=== PATIENT | female | born 1975 | race American Indian/Alaskan Native ===

== ENCOUNTER 2018-04-05 09:02 | Emergency (ER) | payer BC ==
[2018-04-05 09:18] VITALS: BP 110/63
--- NOTE | 2018-04-05 10:46 | Emergency Department Report ---
[facility] Duration: 2 Days Side: Right Severity: moderate Symptoms: Yes Eye Itching, Yes Eye Redness, Yes Mucous Drainage, No Eye Pain, No Purulent Drainage, No Blurred Vision, No Preceding URI, No H/O Allergic Rhinitis, No Contact Lens Use, No Trauma, No Fever, No Headache Other History: 42-year-old female past medical history none presents with complaint of right eye itchiness yellowish discharge and eyelid crusting for 2 days. 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 States that many patients have conjunctivitis currently in her workplace. Denies any blurry vision. Denies any eye pain or floaters. Denies any direct trauma or substance splashing into her right eye. Does not wear contact lenses. <UYEN COFFEY - Last Filed: 04/05/18 10:40> <VAISHNAVI BULLARD - Last Filed: 04/05/18 16:15> Chief Complaint: Eye Problems Stated Complaint: REDNESS/PAIN/RIGHT EYE Time Seen by Provider: 04/05/18 10:27 ED Review of Systems ROS: Stated complaint: REDNESS/PAIN/RIGHT EYE Other details as noted in HPI Constitutional: denies: chills, fever Eyes: eye discharge. denies: eye pain, vision change ENT: denies: ear pain, throat pain Respiratory: denies: cough, shortness of breath, wheezing Cardiovascular: denies: chest pain, palpitations Endocrine: no symptoms reported Gastrointestinal: denies: abdominal pain, nausea, diarrhea Genitourinary: denies: urgency, dysuria, discharge Musculoskeletal: denies: back pain, joint swelling, arthralgia Skin: denies: rash, lesions Neurological: denies: headache, weakness, paresthesias Psychiatric: denies: anxiety, depression Hematological/Lymphatic: denies: easy bleeding, easy bruising <UYEN COFFEY - Last Filed: 04/05/18 10:40> ROS: Stated complaint: REDNESS/PAIN/RIGHT EYE Other details as noted in HPI <VAISHNAVI BULLARD - Last Filed: 04/05/18 16:15> ED Past Medical Hx - Past Medical History Previous Medical History?: No - Surgical History Past Surgical History?: Yes Hx Appendectomy: Yes - Social History Smoking Status: Current Every Day Smoker Substance Use Type: None <UYEN COFFEY - Last Filed: 04/05/18 10:40> <VAISHNAVI BULLARD - Last Filed: 04/05/18 16:15> - Medications Home Medications: Home Medications Medication Instructions Recorded Confirmed Last Taken Type Ibuprofen [Motrin] 600 mg PO Q8H PRN #20 tablet 04/05/18 Unknown Rx Tobramycin 0.3% [Tobrex] 1 drop OD Q4H #1 bottle 04/05/18 Unknown Rx [facility] Exam - Exam General: Vital signs noted. No distress. Alert and acting appropriately. Eye Exam: Right Injection, Right Chemosis, Right Purulent Discharge, Both EOMI HEENT: No Nasal Congestion, No Pharyngeal Erythema Remainder of HEENT: Normal Lungs: Yes Clear Lung Sounds, Yes Good Air Exchange, No Wheezes, No Stridor, No Cough, No Nasal Flaring, No Retractions, No Use of Accessory Muscles <UYEN COFFEY - Last Filed: 04/05/18 10:40> - Exam General: Vital signs noted. No distress. Alert and acting appropriately. <VAISHNAVI BULLARD - Last Filed: 04/05/18 16:15> ED Course Vital Signs 04/05/18 09:10 Temperature 98.3 F Pulse Rate 85 Respiratory 16 Rate Blood Pressure 110/63 O2 Sat by Pulse 100 Oximetry <UYEN COFFEY - Last Filed: 04/05/18 10:40> Vital Signs 04/05/18 09:10 Temperature 98.3 F Pulse Rate 85 Respiratory 16 Rate Blood Pressure 110/63 O2 Sat by Pulse 100 Oximetry <VAISHNAVI BULLARD - Last Filed: 04/05/18 16:15> ED Medical Decision Making - Medical Decision Making A/P: Conjunctivitis right eye 1-tobramycin eyedrops 2-Motrin when necessary 3-follow-up with ophthalmology 4-vision 20/20 overall, 20/25 right eye, 20/20 left <UYEN COFFEY - Last Filed: 04/05/18 10:40> - Medical Decision Making I did not see this patient. I was available for consultation the entire time the patient was in the department. I have reviewed the LOCOMOTIVE DRIVER/PAs note and agree with the plan. <VAISHNAVI BULLARD - Last Filed: 04/05/18 16:15> Critical care attestation.: If time is entered above; I have spent that time in minutes in the direct care of this critically ill patient, excluding procedure time. <UYEN COFFEY - Last Filed: 04/05/18 10:40> Critical care attestation.: If time is entered above; I have spent that time in minutes in the direct care of this critically ill patient, excluding procedure time. <VAISHNAVI BULLARD - Last Filed: 04/05/18 16:15> ED Disposition Is pt being admited?: No Does the pt Need Aspirin: No Time of Disposition: 10:51 <UYEN COFFEY - Last Filed: 04/05/18 10:40> <VAISHNAVI BULLARD - Last Filed: 04/05/18 16:15> Disposition: DC-01 TO HOME OR SELFCARE Condition: Stable Instructions: Conjunctivitis (ED) Prescriptions: Ibuprofen [Motrin] 600 mg PO Q8H PRN #20 tablet PRN Reason: Pain Tobramycin 0.3% [Tobrex] 1 drop OD Q4H #1 bottle Referrals: JOSIANE OCHOA MD [Staff Physician] - 3-5 Days DAVY BENAVIDEZ MD [Staff Physician] - 3-5 Days Forms: Accompanied Note, Work/School Release Form(ED)
== END 2018-04-05 11:06 | disposition home or self-care (01) ==
LOC: ED 09:02
DX: H10.89 Other conjunctivitis (principal); F17.200 Nicotine dependence, unspecified, uncomplicated; Z90.49 Acquired absence of other specified parts of digestive tract
CPT/HCPCS: 99282

== ENCOUNTER 2019-01-23 06:53 | Observation (INO) | payer BC ==
[2019-01-23] MEDS ORDERED: ASPIRIN PO ONE (07:01)
[2019-01-23 07:20] LABS: Basophils # (Auto) 0.1 K/mm3 (0.0-0.1); Basophils % (Auto) 1.9 % (0.0-1.8); Eosinophils # (Auto) 0.1 K/mm3 (0.0-0.4); Eosinophils % (Auto) 1.7 % (0.0-4.3); Lymphocytes # (Auto) 1.7 K/mm3 (1.2-5.4); Lymphocytes % (Auto) 22.4 % (13.4-35.0); Mean Corpuscular HGB Conc 28 % (30-34); Monocytes # (Auto) 0.7 K/mm3 (0.0-0.8); Monocytes % (Auto) 9.5 % (0.0-7.3); Platelet Count 391 K/mm3 (140-440); Red Blood Count 3.72 M/mm3 (3.65-5.03)
[2019-01-23 07:24] LABS: Hematocrit 23.9 % (30.3-42.9); Hemoglobin 6.8 gm/dl (10.1-14.3); Mean Corpuscular Volume 64 fl (79-97)
[2019-01-23 07:51] LABS: BUN/Creatinine Ratio 22; Blood Urea Nitrogen 11 mg/dL (7-17); Calcium 8.6 mg/dL (8.4-10.2); Hemolysis Index 3
--- NOTE | 2019-01-23 07:53 | XRay Report ---
ROUTINE CHEST, TWO VIEWS: HISTORY: chest pain. The trachea, heart, mediastinal contour, lung brady and bony thorax are unremarkable. IMPRESSION: Unremarkable chest x-ray.
[2019-01-23] MEDS ORDERED: NACL 0.9% 500 ML 500 ML IV ONE (08:29)
--- NOTE | 2019-01-23 08:34 | Emergency Department Report ---
ED Chest Pain HPI - General Chief Complaint: Chest Pain Stated Complaint: CHEST PAIN/SHORTNESS OF BREATH Time Seen by Provider: 01/23/19 08:17 Source: patient Mode of arrival: Ambulatory Limitations: No Limitations - History of Present Illness Initial Comments: 43-year-old female presents to the emergency department with complaint of a sharp left-sided chest pain that radiated to her neck and her left arm that occurred when she was bending over to pick some up earlier this morning. The chest pain has improved, if not resolved, but she still has a "strange feeling" going down her left arm. Also associated with some nausea without vomiting and some shortness of breath. The patient denies any past medical history but upon further questioning does admit to some history of iron deficiency anemia for which she sometimes will be on iron supplements. She is a tobacco smoker. She has a family history of a grandmother who from a heart attack at the age of 50. No recent travel or sick contacts at home. Severity scale (0 -10): 3 - Related Data Previous Rx's Medication Instructions Recorded Last Taken Type Ibuprofen [Motrin] 600 mg PO Q8H PRN #20 tablet 04/05/18 Unknown Rx Tobramycin 0.3% [Tobrex] 1 drop OD Q4H #1 bottle 04/05/18 Unknown Rx Allergies Allergy/AdvReac Type Severity Reaction Status Date / Time iodine Allergy Anaphylaxis Verified 04/05/18 09:14 Heart Score - HEART Score History: Moderately suspicious EKG: Normal Age: < 45 Risk factors: 1-2 risk factors Troponin: < normal limit HEART Score: 2 ED Review of Systems ROS: Stated complaint: CHEST PAIN/SHORTNESS OF BREATH Other details as noted in HPI Comment: All other systems reviewed and negative Constitutional: denies: chills, fever Eyes: denies: eye pain, vision change ENT: denies: ear pain, throat pain Respiratory: shortness of breath. denies: cough Cardiovascular: chest pain. denies: palpitations Gastrointestinal: nausea. denies: abdominal pain, vomiting Genitourinary: denies: dysuria, discharge Musculoskeletal: denies: back pain, arthralgia Skin: denies: rash, lesions Neurological: denies: headache, weakness ED Past Medical Hx - Past Medical History Previous Medical History?: No - Surgical History Past Surgical History?: Yes Hx Appendectomy: Yes - Social History Smoking Status: Current Every Day Smoker Substance Use Type: None - Medications Home Medications: Home Medications Medication Instructions Recorded Confirmed Last Taken Type Ibuprofen [Motrin] 600 mg PO Q8H PRN #20 tablet 04/05/18 Unknown Rx Tobramycin 0.3% [Tobrex] 1 drop OD Q4H #1 bottle 04/05/18 Unknown Rx ED Physical Exam - General Limitations: No Limitations - Other Other exam information: GENERAL: The patient is well-developed well-nourished. HEENT: Normocephalic. Atraumatic. Patient has moist mucous membranes. EYES: Extraocular motions are intact. Pupils are equal and reactive to light bilaterally. Pale conjunctiva. NECK: Supple. Trachea is midline. CHEST/LUNGS: Clear to auscultation. There is no respiratory distress noted. HEART/CARDIOVASCULAR: Regular. There is no tachycardia. There is no obvious murmur. ABDOMEN: Abdomen is soft, nontender. Patient has normal bowel sounds. There is no abdominal distention. SKIN: Skin is warm and dry. NEURO: The patient is awake, alert, and oriented. The patient is cooperative. The patient has no focal neurologic deficits. The patient has normal speech. MUSCULOSKELETAL: There is no tenderness or deformity. There is no evidence of acute injury. ED Course Vital Signs 01/23/19 01/23/19 08:58 09:31 Temperature 98.3 F Pulse Rate 77 Respiratory 16 18 Rate Blood Pressure 124/60 [Right] O2 Sat by Pulse 100 Oximetry PHIL score - Phil Score Age > 65: (0) No Aspirin use within the Past 7 Days: (0) No 3 or more CAD Risk Factors: (0) No 2 or more Angina events in past 24 hrs: (1) Yes Known CAD with more than 50% Stenosis: (0) No Elevated Cardiac Markers: (0) No ST Deviation Greater than 0.5mm: (0) No PHIL Score: 1 ED Medical Decision Making - Lab Data Result diagrams: 01/23/19 07:10 01/23/19 07:10 - EKG Data -: EKG Interpreted by Me EKG shows normal: sinus rhythm, axis, intervals, QRS complexes, ST-T waves Rate: normal - EKG Data When compared to previous EKG there are: previous EKG unavailable Interpretation: normal EKG - Radiology Data Radiology results: image reviewed interpreted by me: Chest x-ray does not show any pneumothorax, pleural effusion, pneumonia or obvious focal consolidation. - Medical Decision Making Patient presents with some sharp left-sided chest pains going to the neck and arm, some intermittent shortness of breath. She was found to have a hemoglobin of 6.8 and despite her history of iron deficiency anemia, she appears to have some symptomatic anemia. Patient has a risk factors of tobacco use and family history for cardiac disease. EKG does not show any signs of ST elevation MN. First troponin negative. Chest x-ray is unremarkable. She will be transfused 1 unit to start and will be admitted to the hospital for further evaluation of her symptomatic anemia and chest pains. She has been accepted for admission by the hospitalist. - Differential Diagnosis symptomatic anemia, MN, costochondritis, pneumonia Critical Care Time: Yes Critical care time in (mins) excluding proc time.: 35 Critical care attestation.: If time is entered above; I have spent that time in minutes in the direct care of this critically ill patient, excluding procedure time. Critical care time spent on this patient and doing her initial evaluation, multiple re-evaluations, evaluation of labs and imaging, ordering of blood for transfusion, discussion with the patient and hospitalist service. Critical Care Time: 35 minutes ED Disposition Clinical Impression: Acute chest pain, Microcytic anemia, Symptomatic anemia Disposition: OP ADMIT IP TO THIS HOSP Is pt being admited?: Yes Condition: Fair Time of Disposition: 08:34
[2019-01-23] MEDS ORDERED: NACL 0.9% 500 ML 500 ML ONE ×2 (10:52→11:43)
[2019-01-23] MEDS ORDERED: PROVENTIL IH PRN (11:26)
[2019-01-23] MEDS ORDERED: ALUM-MAG HYDROX-SIMETH 200-200-20MG/5ML PO PRN (11:26)
[2019-01-23] MEDS ORDERED: PERCOCET 5/325 PO PRN (11:26)
[2019-01-23] MEDS ORDERED: ZOFRAN IV PRN (11:26)
[2019-01-23] MEDS ORDERED: SODIUM CHLORIDE FLUSH SYRINGE 10 ML IV PRN (11:26)
[2019-01-23] MEDS ORDERED: TYLENOL PO PRN (11:26)
--- NOTE | 2019-01-23 11:32 | History and Physical Report ---
History of Present Illness Date of examination: 01/23/19 Date of admission: 01/23/19 08:34 Chief complaint: Chest pain History of present illness: 43-year-old -[place] female whose past medical history significant for anemia, menometrorrhagia presented to the emergency department with complaints of left chest pain that started earlier this morning. Pain was sharp, 3-4 out of 10 in intensity, with radiation to the left arm and jaw associated shortness of breath. She denied any relieving or aggravating factors identified. Patient denied fever, chills, palpitation, leg swelling. Patient was told she had anemia but never followed with a doctor. Hemoglobin was checked in the ED and was 6.8, patient admitted to the floor for further management of chest pain and anemia. One unit of blood was ordered in the emergency department. REVIEW OF SYSTEMS: GENERAL: no weight change, no fatigue, no fever HEAD: no head ache EYES: no blurry vision, no acute visual loss EARS: no hearing loss, no discharge, no earache NOSE: no stuffiness, no sneezing, no discharge MOUTH, THROAT AND NECK: no bleeding gums, no sore throat, no swollen neck CARDIAC: As stated in HPI. RESPIRATORY: As stated in HPI. GI: no decreased appetite, no nausea, no vomiting, no dysphagia, no diarrhea, no constipation, no abdominal pain URINARY: no change in frequency, no urgency, no polyuria, no hematuria, no incontinence MUSCULOSKELETAL: no muscle weakness, no pain, no joint stiffness NEUROLOGIC: no loss of sensation/numbness, no tingling, no tremors, no weaknes s/paralysis HEMATOLOGIC: no anemia, no easy bruising SKIN: no rashes ENDOCRINE: no heat/cold intolerance, no polyuria, no polydipsia, no thyroid problems, no diabetes PSYCHIATRIC: no anxiety, no depression, no suicidal ideations Past History Past Medical History: anemia Past Surgical History: appendectomy Social history: smoking (half pack per day), full code. denies: alcohol abuse, prescription drug abuse, IV drug use Family history: no significant family history Medications and Allergies Allergies Allergy/AdvReac Type Severity Reaction Status Date / Time iodine Allergy Anaphylaxis Verified 04/05/18 09:14 Home Medications Medication Instructions Recorded Confirmed Last Taken Type Ibuprofen [Motrin] 600 mg PO Q8H PRN #20 tablet 04/05/18 Unknown Rx Tobramycin 0.3% [Tobrex] 1 drop OD Q4H #1 bottle 04/05/18 Unknown Rx Active Meds: Active Medications Acetaminophen (Tylenol) 650 mg PO Q4H PRN PRN Reason: Pain MILD(1-3)/Fever >100.5/SPRING Al Hydrox/Mg Hydrox/Simethicone (Alum-Mag Hydrox-Simeth [id number]/5ml) 30 ml PO Q4H PRN PRN Reason: Indigestion Albuterol (Proventil) 2.5 mg IH Q4HRT PRN PRN Reason: Shortness Of Breath Ondansetron HCl (Zofran) 4 mg IV Q8H PRN PRN Reason: Nausea And Vomiting Oxycodone/Acetaminophen (Percocet 5/325) 1 tab PO Q6H PRN PRN Reason: Pain, Moderate (4-6) Sodium Chloride (Sodium Chloride Flush Syringe 10 Ml) 10 ml IV BID ZACHARY Sodium Chloride (Sodium Chloride Flush Syringe 10 Ml) 10 ml IV PRN PRN PRN Reason: LINE FLUSH Exam - Physical Exam Narrative exam: Not in cardiopulmonary distress. The patient appeared well nourished and normally developed. Vital signs as documented. Head exam is unremarkable. No scleral icterus . Neck is without jugular venous distension, thyromegaly, or carotid bruits. Lungs are clear to auscultation. Cardiac exam reveals regular rate and Rhythm. First and second heart sounds normal. No murmurs, rubs or gallops. Abdominal exam reveals normal bowel sounds, no masses, no organomegaly and no aortic enlargement. Extremities are nonedematous and both femoral and pedal pulses are normal. 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 No focal weakness. - Constitutional Vitals: Temp Pulse Resp BP Pulse Ox 98.3 F 75 12 137/74 100 01/23/19 09:31 01/23/19 11:00 01/23/19 11:00 01/23/19 11:00 01/23/19 11:00 Results - Labs CBC & Chem 7: 01/23/19 07:10 01/23/19 07:10 Labs: Laboratory Last Values WBC 7.4 K/mm3 (4.5-11.0) 01/23/19 07:10 RBC 3.72 M/mm3 (3.65-5.03) 01/23/19 07:10 Hgb 6.8 gm/dl (10.1-14.3) L 01/23/19 07:10 Hct 23.9 % (30.3-42.9) L 01/23/19 07:10 MCV 64 fl (79-97) L 01/23/19 07:10 MCH 18 pg (28-32) L 01/23/19 07:10 MCHC 28 % (30-34) L 01/23/19 07:10 RDW 21.0 % (13.2-15.2) H 01/23/19 07:10 Plt Count 391 K/mm3 (140-440) 01/23/19 07:10 Lymph % (Auto) 22.4 % (13.4-35.0) 01/23/19 07:10 [place] % (Auto) 9.5 % (0.0-7.3) H 01/23/19 07:10 Eos % (Auto) 1.7 % (0.0-4.3) 01/23/19 07:10 Baso % (Auto) 1.9 % (0.0-1.8) H 01/23/19 07:10 Lymph # 1.7 K/mm3 (1.2-5.4) 01/23/19 07:10 [place] # 0.7 K/mm3 (0.0-0.8) 01/23/19 07:10 Eos # 0.1 K/mm3 (0.0-0.4) 01/23/19 07:10 Baso # 0.1 K/mm3 (0.0-0.1) 01/23/19 07:10 Seg Neutrophils % 64.5 % (40.0-70.0) 01/23/19 07:10 Seg Neutrophils # 4.8 K/mm3 (1.8-7.7) 01/23/19 07:10 Sodium 141 mmol/L (137-145) 01/23/19 07:10 Potassium 4.2 mmol/L (3.6-5.0) 01/23/19 07:10 Chloride 105.7 mmol/L (98-107) 01/23/19 07:10 Carbon Dioxide 24 mmol/L (22-30) 01/23/19 07:10 Anion Gap 16 mmol/L 01/23/19 07:10 BUN 11 mg/dL (7-17) 01/23/19 07:10 Creatinine 0.5 mg/dL (0.7-1.2) L 01/23/19 07:10 Estimated GFR > 60 ml/min 01/23/19 07:10 BUN/Creatinine Ratio 22 % 01/23/19 07:10 Glucose 115 mg/dL (65-100) H 01/23/19 07:10 Calcium 8.6 mg/dL (8.4-10.2) 01/23/19 07:10 Troponin T < 0.010 ng/mL (0.00-0.029) 01/23/19 07:10 Blood Type A POSITIVE 01/23/19 08:55 Antibody Screen Negative 01/23/19 08:55 Crossmatch See Detail 01/23/19 08:55 Assessment and Plan Assessment and plan: Symptomatic anemia - Anemia workup - We'll transfuse 1 unit of blood and follow H&H after that Menometrorrhagia - Patient need outpatient 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
[2019-01-23 15:11] LABS: Hematocrit 26.1 % (30.3-42.9); Hemoglobin 7.9 gm/dl (10.1-14.3); Mean Corpuscular HGB Conc 30 % (30-34); Platelet Count 310 K/mm3 (140-440); Red Blood Count 3.95 M/mm3 (3.65-5.03)
[2019-01-23 15:16] LABS: Mean Corpuscular Volume 66 fl (79-97); Red Cell Distribution Width 21.1 % (13.2-15.2)
[2019-01-23 16:28] LABS: Iron 41 ug/dL (37-170); Total Iron Binding Capacity 394 mcg/dL (250-450)
[2019-01-23] MEDS: SODIUM CHLORIDE FLUSH SYRINGE 10 ML IV SCH (22:30)
[2019-01-24 06:32] LABS: BUN/Creatinine Ratio 12; Blood Urea Nitrogen 6 mg/dL (7-17); Calcium 8.4 mg/dL (8.4-10.2); Hemolysis Index 1
[2019-01-24] MEDS ORDERED: LEXISCAN IV ONE (09:08)
[2019-01-24] MEDS: SODIUM CHLORIDE FLUSH SYRINGE 10 ML IV SCH (10:00)
--- NOTE | 2019-01-24 11:01 | Discharge Summary ---
Providers - Providers Date of Admission: 01/23/19 08:34 Attending physician: SIVA SPARKS MD [facility] Reason for admission: Chest pain, severe anemia Condition: Stable Pertinent studies: Cardiac stress test; negative for acute ischemia Hospital course: 43-year-old -[place] female whose past medical history significant for anemia, menometrorrhagia presented to the emergency department with complaints of left chest pain that started earlier this morning. Pain was sharp, 3-4 out of 10 in intensity, with radiation to the left arm and jaw associated shortness of breath. She denied any relieving or aggravating factors identified. Patient denied fever, chills, palpitation, leg swelling. Patient was told she had anemia but never followed with a doctor. Hemoglobin was checked in the ED and was 6.8, patient admitted to the floor for further management of chest pain and anemia. One unit of blood was ordered in the emergency department. Patient was admitted to the floor and was transfused 1 unit of PRBC and post transfusion hemoglobin was 7.6 and patients symptoms resolved. Stress test was done and negative for acute ischemia. Patient was given iron tablets and advised to have follow up with STORAGE ENGINEER and hematology as an O/P. Disposition: DC-01 TO HOME OR SELFCARE Time spent for discharge: 32 minutes - Discharge Diagnoses (1) Acute chest pain Status: Acute (2) Microcytic anemia Status: Acute (3) Symptomatic anemia Status: Acute Core Measure Documentation - Palliative Care Palliative Care/ Comfort Measures: Not Applicable - Core Measures Any of the following diagnoses?: none Exam - Physical Exam Narrative exam: Not in cardiopulmonary distress. The patient appeared well nourished and normally developed. Vital signs as documented. Head exam is unremarkable. No scleral icterus . Neck is without jugular venous distension, thyromegaly, or carotid bruits. Lungs are clear to auscultation. Cardiac exam reveals regular rate and Rhythm. First and second heart sounds normal. No murmurs, rubs or gallops. Abdominal exam reveals normal bowel sounds, no masses, no organomegaly and no aortic enlargement. Extremities are nonedematous and both femoral and pedal pulses are normal. 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 No focal weakness. - Constitutional Vitals: Temp Pulse Resp BP Pulse Ox 98.3 F 66 16 126/62 100 01/24/19 07:37 01/24/19 07:37 01/24/19 07:37 01/24/19 07:37 01/24/19 07:37 Plan Activity: no restrictions Weight Bearing Status: Full Weight Bearing Diet: regular Follow up with: LENKA PARRA MD [Primary Care Provider] - 3-5 Days JAMES MAKI MD [Staff Physician] - 7 Days Forms: Work/School Release Form Prescriptions: Ferrous Sulfate [Ferrous Sulfate 324 MG] 324 mg PO BID #60 tablet.
[2019-01-24 13:29] VITALS: BP 122/62
--- NOTE | 2019-01-24 14:18 | Treadmill Report ---
NUCLEAR PERFUSION STRESS TEST REASON FOR STUDY: For chest pain. READING PHYSICIAN: Dr. Sina Pitt. IMAGING PROTOCOL: The patient received 10 mCi of Technetium 99m Tetrofosmin for resting image and 28 mCi of Technetium 99m Tetrofosmin for stress imaging. The imaging for the whole procedure was completed 30-90 minutes following the initial injection of Technetium 99m Tetrofosmin. The SPECT imaging in the 180 degree arc was performed in the right anterior oblique projection. Computerized reconstruction of the images was performed for analysis. IMAGING RESULTS: Normal cavity size from stress to rest. Normal distribution of radionuclide in the anterior, inferior, septal, and apical regions. Gated SPECT, EF of 63% with no wall motion abnormality. The patient infused Lexiscan with no EKG changes. SUMMARY: 1. Negative Lexiscan EKG. 2. Normal rest and stress myocardial perfusion scan. No significant stress ischemia. No wall motion abnormality. Gated SPECT, EF of 63%. JOB# [id number] DEEPTHI/SHIMA
== END 2019-01-24 14:26 | disposition home or self-care (01) ==
LOC: ED 06:53 → 4A 08:34
PROVIDERS: ADMIT Internal Medicine; ATTEND Internal Medicine
DX: R07.89 Other chest pain (principal); D50.9 Iron deficiency anemia, unspecified; F17.210 Nicotine dependence, cigarettes, uncomplicated; Z90.89 Acquired absence of other organs; Z79.899 Other long term (current) drug therapy
CPT/HCPCS: 36415; 36430; 71046; 78452; 80048; 82607; 82728; 82747; 83550; 84484; 85025; 85027; 86850; 86900; 86901; 86920; 93005; 93010; 93017; 99291; A9502; G0378; J2785; J7040; P9016